=== PATIENT | male | born 1965 | race Asian ===

== ENCOUNTER 2020-08-22 22:52 | Emergency (ER) | payer OTHER ==
[2020-08-22] MEDS ORDERED: FAMOTIDINE 20 MG/50 ML IVPB 20 MG/50 ML MG IVPB ONE (23:04)
[2020-08-22] MEDS ORDERED: methylPREDNISolone NA SUCC 125 MG/2 ML VIAL IVPB ONE (23:05)
[2020-08-22 23:07] VITALS: TEMP 97.9; BMI 28.2
[2020-08-22] MEDS ORDERED: methylPREDNISolone NA SUCC 125 MG/2 ML VIAL ONE (23:14)
[2020-08-22] MEDS ORDERED: methylPREDNISolone NA SUCC 125 MG/2 ML VIAL IVPUSH ONE (23:23)
[2020-08-23 00:07] VITALS: BP 138/84; PULSE 60
[2020-08-23] MEDS ORDERED: diphenhydrAMINE HCL 25 MG CAPSULE (FP) PO ONE ×2 (00:27)
== END 2020-08-23 00:33 | disposition home or self-care (01) ==
LOC: FER 22:52
PROC: 3E033NZ Introduction of Analgesics, Hypnotics, Sedatives into Peripheral Vein, Percutaneous Approach (ICD-10-PCS; principal; 2020-08-22)
PROC: 3E033GC Introduction of Other Therapeutic Substance into Peripheral Vein, Percutaneous Approach (ICD-10-PCS; 2020-08-22)
PROC: 3E033GC Introduction of Other Therapeutic Substance into Peripheral Vein, Percutaneous Approach (ICD-10-PCS; 2020-08-22)
DX: L50.9 Urticaria, unspecified (principal)
CPT/HCPCS: 99283-25